=== PATIENT | male | born 1940 | race Caucasian/White ===

== ENCOUNTER 2018-10-04 16:02 | Emergency (ER) | payer OTHER, MEDICAID ==
[~2018-10-04] VITALS: Ht 170.2 cm; Wt 81.6 kg
[2018-10-04 16:25] VITALS: BP 133/54
--- NOTE | 2018-10-04 16:35 | NUR ---
EKG AT TRIAGE ROOM.
--- NOTE | 2018-10-04 16:41 | NUR ---
WAIT AT LOBBY WITH FAMILY.
--- NOTE | 2018-10-04 16:54 | NUR ---
PT AMBULATED TO ER BED 03
--- NOTE | 2018-10-04 17:03 | NUR ---
TAKEN TO X RAY VIA WHEELCHAIR
--- NOTE | 2018-10-04 17:15 | NUR ---
BACK FROM RADIOLOGY TO BED 3
--- NOTE | 2018-10-04 17:35 | NUR ---
PT RESTING COMFORTABLY IN BED; DAUGHTER IN LAW AT BEDSIDE.
[2018-10-04] MEDS ORDERED: KETOROLAC 15 MG/ML VIAL IM ONE (18:00)
--- NOTE | 2018-10-04 18:46 | NUR ---
NO ADVERSE SIDE EFFECTS NOTED OR VOICED FROM MEDICATION.
[2018-10-04 18:50] VITALS: BP 124/66
== END 2018-10-04 19:43 | disposition home or self-care (01) ==
LOC: MED 16:02
DX: R07.81 Pleurodynia (principal); W18.30XA Fall on same level, unspecified, initial encounter; Y93.01 Activity, walking, marching and hiking; Y92.89 Other specified places as the place of occurrence of the external cause; Y99.8 Other external cause status
CPT/HCPCS: 71101; 93005; 96372; 99283; J1885

== ENCOUNTER 2020-07-05 09:54 | Emergency (ER) | payer OTHER, MEDICAID ==
[~2020-07-05] VITALS: Ht 160 cm; Wt 90.7 kg
--- NOTE | 2020-07-05 10:10 | NUR ---
PT W/C ASSISTED TO ER BED 8 FOR BEDSIDE TRIAGE.
[2020-07-05 10:13] VITALS: BP 50/59
[2020-07-05] MEDS ORDERED: CYCLOBENZAPRINE 10 MG TAB PO ONE (10:15)
[2020-07-05] MEDS ORDERED: KETOROLAC 30 MG/ML VIAL IM ONE (10:15)
--- NOTE | 2020-07-05 10:20 | NUR ---
79 YO MALE BIB DAUGHTER C/O LEFT SHOULDER PAIN 2/10 RADIATING TO LEFT FLANK S/P FALL X2DAYS AGO. PT STATES HE TOOK SOME TYNENOL AT HOME WITH SOME RELIEF. PT DENIES LOC, DENIES HITTING HEAD, DENIES SOB, DENIES FEVER/CHILLS. DENIES PMH NKA
--- NOTE | 2020-07-05 10:31 | NUR ---
Pt taken to XR via W/C.
--- NOTE | 2020-07-05 10:41 | NUR ---
Pt taken to ER bed 8 via W/C.
[2020-07-05 11:48] VITALS: BP 50/59
--- NOTE | 2020-07-05 11:49 | NUR ---
Patient discharged with v/s stable. Written and verbal after care instructions given and explained. Patient verbalized understanding. Ambulatory with steady gait. All questions addressed prior to discharge. Advised to follow up with PMD.
== END 2020-07-05 11:49 | disposition home or self-care (01) ==
LOC: MED 09:54
DX: M25.512 Pain in left shoulder (principal); M54.6 Pain in thoracic spine; W18.09XA Striking against other object with subsequent fall, initial encounter; Y93.01 Activity, walking, marching and hiking; Y92.89 Other specified places as the place of occurrence of the external cause; Y99.8 Other external cause status
CPT/HCPCS: 71101; 73030; 96372; 99284; J1885